=== PATIENT | male | born 1975 | race Caucasian/White ===

== ENCOUNTER 2018-04-04 21:31 | Emergency (ER) | payer OTHER | END 2018-04-05 00:50 | disposition home or self-care (01) | LOC: FTE 21:31 | DX: S60.511A Abrasion of right hand, initial encounter (principal); F17.210 Nicotine dependence, cigarettes, uncomplicated; V49.50XA Passenger injured in collision with unspecified motor vehicles in traffic accident, initial encounter | CPT/HCPCS: 70486; 73130-RT; 73562; 99284-25 ==